=== PATIENT | male | born 1975 | race Caucasian/White ===

== ENCOUNTER → 2019-05-23 12:26 | Outpatient (CLI) | payer BC, MEDICARE ==
[2015-03-01 16:04] VITALS: BMI 42.2
[~2019-05-23 12:26] MED LIST: ELIQUIS2.5 MG PO; ELIQUIS5 MG PO; PRINIVIL20 MG PO; PROTONIX40 MG PO
[2019-05-23 13:39] LABS: C-REACTIVE PROTEIN 1.1 mg/dL (0.0-0.9); CREATININE - SERUM 0.9 mg/dL (0.6-1.3); VANCOMYCIN - TROUGH 7.2 ug/mL (10.0-20.0)
== END | disposition home or self-care (01) ==
LOC: D.LABREF 12:26
PROVIDERS: ATTEND Internal Medicine Infectious Disease
DX: T81.49XS Infection following a procedure, other surgical site, sequela (principal)

== ENCOUNTER → 2019-05-30 12:26 | Outpatient (CLI) | payer BC, MEDICARE ==
[2015-03-01 16:04] VITALS: BMI 42.2
[2019-05-30 12:59] LABS: C-REACTIVE PROTEIN 1.7 mg/dL (0.0-0.9); CREATININE - SERUM 0.9 mg/dL (0.6-1.3); VANCOMYCIN - TROUGH 9.7 ug/mL (10.0-20.0)
== END | disposition home or self-care (01) ==
LOC: D.LABREF 12:26
PROVIDERS: ATTEND Internal Medicine Infectious Disease
DX: T81.49XS Infection following a procedure, other surgical site, sequela (principal)

== ENCOUNTER → 2019-06-06 12:32 | Outpatient (CLI) | payer BC, MEDICARE ==
[2015-03-01 16:04] VITALS: BMI 42.2
[2019-06-06 13:02] LABS: CREATININE - SERUM 0.9 mg/dL (0.6-1.3); VANCOMYCIN - TROUGH 15.5 ug/mL (10.0-20.0)
== END | disposition home or self-care (01) ==
LOC: D.LABREF 12:32
PROVIDERS: ATTEND Family Medicine
DX: T85.738A Infection and inflammatory reaction due to other nervous system device, implant or graft, initial encounter (principal)

== ENCOUNTER → 2019-06-13 11:12 | Outpatient (CLI) | payer BC, MEDICARE ==
[2015-03-01 16:04] VITALS: BMI 42.2
[2019-06-13 12:04] LABS: C-REACTIVE PROTEIN 2.4 mg/dL (0.0-0.9)
== END | disposition home or self-care (01) ==
LOC: D.LABREF 11:12
PROVIDERS: ATTEND Internal Medicine Infectious Disease
DX: R52 Pain, unspecified (principal); B99.8 Other infectious disease